=== PATIENT | female | born 1980 | race Caucasian/White ===

== ENCOUNTER → 2021-10-13 | Outpatient (CLI) | payer OTHER | LOC: M.LAB 16:16 | PROVIDERS: ATTEND Internal Medicine Critical Care Medicine | DX: J98.11 Atelectasis (principal); R06.02 Shortness of breath; R60.0 Localized edema ==

== ENCOUNTER → 2021-11-04 | Outpatient (CLI) | payer OTHER | LOC: M.RAD 09:45 | PROVIDERS: ATTEND Nurse Practitioner Family | DX: Z12.31 Encounter for screening mammogram for malignant neoplasm of breast (principal) ==